=== PATIENT | male | born 1935 | race Caucasian/White ===

== ENCOUNTER → 2018-03-25 | Outpatient (CLI) | payer MEDICARE | END | disposition home or self-care (01) | LOC: CVU 10:42 | PROVIDERS: ATTEND Psychiatry & Neurology Neurology | DX: I65.23 Occlusion and stenosis of bilateral carotid arteries (principal); I10 Essential (primary) hypertension; I70.208 Unspecified atherosclerosis of native arteries of extremities, other extremity; R01.1 Cardiac murmur, unspecified; M81.0 Age-related osteoporosis without current pathological fracture; G45.8 Other transient cerebral ischemic attacks and related syndromes | CPT/HCPCS: 93880 ==

== ENCOUNTER 2020-11-21 11:31 | Outpatient (CLI) | payer MEDICARE ==
[2020-11-21] MEDS ORDERED: VISIPAQUE 320 MG/ML, 150ML BOTTLE ONE (15:23)
== END 2020-11-21 23:59 | disposition home or self-care (01) ==
LOC: CVU 11:31 → RAD 23:59
PROVIDERS: ATTEND Internal Medicine Cardiovascular Disease
DX: I65.23 Occlusion and stenosis of bilateral carotid arteries (principal); K40.90 Unilateral inguinal hernia, without obstruction or gangrene, not specified as recurrent; I35.8 Other nonrheumatic aortic valve disorders; I48.91 Unspecified atrial fibrillation; I51.7 Cardiomegaly; I77.1 Stricture of artery; N40.0 Benign prostatic hyperplasia without lower urinary tract symptoms
CPT/HCPCS: 71275; 74174; 93880; Q9967

== ENCOUNTER 2020-11-27 07:05 | Inpatient (IN) | payer MEDICARE ==
[~2020-11-27] VITALS: Ht 172.7 cm; Wt 74.0 kg
[2020-11-27] MEDS ORDERED: SODIUM CHLORIDE 0.9% 1,000 ML IV ONE (07:30)
[2020-11-27] MEDS ORDERED: ONDANSETRON 2MG/ML, 2ML IV PRN (07:30)
[2020-11-27] MEDS ORDERED: NEBI10TA3 PO (07:38)
[2020-11-27] MEDS ORDERED: EREN70AU2 SUBD (07:40)
[2020-11-27] MEDS ORDERED: ESLI200T PO (07:41)
[2020-11-27] MEDS ORDERED: FINA5TAB4 PO (07:42)
[2020-11-27] MEDS ORDERED: ATOR10TA9 PO (07:42)
[2020-11-27] MEDS ORDERED: OMEP-110 PO (07:43)
[2020-11-27 07:44] VITALS: BP 121/67
[2020-11-27 08:29] LABS: BASOPHILS % (AUTO) 1 % (0-1); EOSINOPHILS % (AUTO) 2 % (1-7); LYMPHOCYTES % (AUTO) 17 % (22-44); MEAN CORPUSCULAR HEMOGLOBIN 31.8 pg (27.5-34.5); MEAN CORPUSCULAR HGB CONC 33.4 g/dL (33.2-36.2); MEAN PLATELET VOLUME 9.1 fL (7.4-10.4); MONOCYTES % (AUTO) 10 % (2-9); NEUTROPHILS % (AUTO) 70 % (42-75); PLATELET COUNT 136 x10^3/uL (130-400); RED BLOOD COUNT 4.96 x10^6/uL (4.38-5.82); RED CELL DISTRIBUTION WIDTH 13.9 % (9.4-14.8)
[2020-11-27] MEDS ORDERED: PROTAMINE SULFATE 10 MG/ML, 5ML ONE (08:36)
[2020-11-27 08:39] LABS: PROTHROMBIN TIME 10.7 Seconds (9.6-11.5)
[2020-11-27] MEDS ORDERED: FENTANYL PF 250 MCG/5ML ONE (08:40)
[2020-11-27] MEDS ORDERED: CEFAZOLIN 1,000 MG ONE (08:41)
[2020-11-27 08:42] LABS: ALBUMIN 3.5 g/dL (3.4-5.0); ANION GAP 5 mmol/L (5-15); CALCIUM 8.8 mg/dL (8.5-10.1); CHLORIDE 108 mmol/L (98-107)
[2020-11-27 08:46] LABS: ALANINE AMINOTRANSFERASE 54 U/L (12-78); ALKALINE PHOSPHATASE 85 U/L (45-117); BILIRUBIN,TOTAL 1.1 mg/dL (0.2-1.0); CREATININE 0.85 mg/dL (0.7-1.3); TOTAL PROTEIN 6.5 g/dL (6.4-8.2)
[2020-11-27] MEDS ORDERED: ROCURONIUM 10 MG/ML,10ML ONE (08:50)
[2020-11-27] MEDS ORDERED: SUCCINYLCHOLINE 20 MG/ML, 10ML ONE (08:50)
[2020-11-27] MEDS ORDERED: PHENYLEPHRINE 10 MG/ML ONE (08:50)
[2020-11-27] MEDS ORDERED: ONDANSETRON 2MG/ML, 2ML ONE (08:50)
[2020-11-27] MEDS ORDERED: DEXAMETHASONE 4 MG/ML, 1ML ONE (08:50)
[2020-11-27] MEDS ORDERED: PROPOFOL 10 MG/ML, 20ML ONE (08:50)
[2020-11-27] MEDS ORDERED: MIDAZOLAM 1 MG/ML, 2ML ONE (09:45)
[2020-11-27] MEDS ORDERED: hydrALAzine 20 MG/ML, 1ML IVPush PRN (10:00)
[2020-11-27] MEDS ORDERED: ACETAMINOPHEN 325 MG TABLET PO PRN (10:00)
[2020-11-27] MEDS ORDERED: LABETALOL 20 MG/4 ML IVPush PRN (10:00)
[2020-11-27] MEDS: DEXMEDETOMIDINE 200 MCG in SODIUM CHLORIDE 0.9% 48 ML IV PRN ×2 (10:28→12:45)
[2020-11-27] MEDS ORDERED: FENTANYL PF 100 MCG/2ML ONE ×2 (11:16→12:34)
[2020-11-27] MEDS: FENTANYL PF 100 MCG/2ML IVPush PRN ×2 (11:23→12:41)
[2020-11-27] MEDS ORDERED: ACETAMINOPHEN 325 MG TABLET ONE (15:36)
[2020-11-27] MEDS: METOPROLOL TARTRATE 50 MG TAB PO SCH (17:40)
[2020-11-27] MEDS: FINASTERIDE 5 MG TABLET PO SCH (17:41)
[2020-11-27 18:43] VITALS: BP 93/58
[2020-11-27] MEDS ORDERED: MELATONIN 5 MG TABLET PO PRN (20:30)
[2020-11-27] MEDS ORDERED: ATORVASTATIN 10 MG TABLET PO SCH (21:00)
[2020-11-28 01:34] VITALS: BP 96/62
[2020-11-28] MEDS ORDERED: OMEPRAZOLE 20 MG CAPSULE.DR PO SCH (06:00)
[2020-11-28 06:20] LABS: BASOPHILS % (AUTO) 0 % (0-1); EOSINOPHILS % (AUTO) 0 % (1-7); LYMPHOCYTES % (AUTO) 8 % (22-44); MEAN CORPUSCULAR HEMOGLOBIN 32.2 pg (27.5-34.5); MEAN CORPUSCULAR HGB CONC 33.6 g/dL (33.2-36.2); MEAN PLATELET VOLUME 9.4 fL (7.4-10.4); MONOCYTES % (AUTO) 7 % (2-9); NEUTROPHILS % (AUTO) 84 % (42-75); PLATELET COUNT 114 x10^3/uL (130-400); RED BLOOD COUNT 4.55 x10^6/uL (4.38-5.82); RED CELL DISTRIBUTION WIDTH 14.1 % (9.4-14.8)
[2020-11-28] MEDS: METOPROLOL TARTRATE 50 MG TAB PO SCH (06:20)
[2020-11-28 06:25] LABS: ANION GAP 7 mmol/L (5-15); CALCIUM 8.3 mg/dL (8.5-10.1); CHLORIDE 109 mmol/L (98-107)
[2020-11-28 08:40] VITALS: BP 91/59
[2020-11-28] MEDS ORDERED: ESLICARBAZEPINE ACETATE 400 MG HOMEMEDPO SCH (09:00)
[2020-11-28] MEDS: FINASTERIDE 5 MG TABLET PO SCH (09:00)
[2020-11-28] MEDS ORDERED: ASPIRIN 81 MG TABLET EC PO SCH (09:00)
[2020-11-28] MEDS ORDERED: ASPI81TA45 PO (10:21)
== END 2020-11-28 11:23 | disposition home or self-care (01) | DRG 266 ==
LOC: ORIP 07:05 → 5SO 16:08
PROVIDERS: ADMIT Internal Medicine Cardiovascular Disease; ATTEND Internal Medicine Cardiovascular Disease
PROC: B24BZZ4 Ultrasonography of Heart with Aorta, Transesophageal (ICD-10-PCS; 2020-11-27)
PROC: B3101ZZ Fluoroscopy of Thoracic Aorta using Low Osmolar Contrast (ICD-10-PCS; 2020-11-27)
PROC: 02RF38Z Replacement of Aortic Valve with Zooplastic Tissue, Percutaneous Approach (ICD-10-PCS; principal; 2020-11-27 09:00)
DX: I35.0 Nonrheumatic aortic (valve) stenosis (principal); Z00.6 Encounter for examination for normal comparison and control in clinical research program; I50.33 Acute on chronic diastolic (congestive) heart failure; E78.5 Hyperlipidemia, unspecified; I11.0 Hypertensive heart disease with heart failure; I48.91 Unspecified atrial fibrillation; I49.5 Sick sinus syndrome; Z20.822 Contact with and (suspected) exposure to COVID-19; Z79.899 Other long term (current) drug therapy
CPT/HCPCS: 33361; 36415; 70450; 80048; 80053; 85025; 85347; 85610; 86850; 86900; 86923; 87635; 93005; 93306; 93355; 94002; C1760; C1769; C1894; G0378; J0690; J1100; J2250; J2405; J2704; J2720; J3010; J0330; J2370; Q9967